=== PATIENT | female | born 1990 | race African-American/Black ===

== ENCOUNTER 2016-07-19 12:48 | Emergency (ER) | payer OTHER ==
--- NOTE | 2016-07-19 13:58 | ED NURSING NOTES ---
Clinical Report - Nurses [facility] [address] [place] [address] 07/19/2016 12:51 Patient: LESLEY GROSSMAN TRIAGE Triage time 1308. Chief Complaint: SORE THROAT. Alert. No acute distress. --13:12 Miguel Seth R.N. 13:08 07/19/16. BP: 109/68. HR: 95. RR: 14. O2 saturation: 99% on room air. Temp: 98.7 F. Pain level now: 01/21. --13:12 Miguel Seth R.N. Weight: 55.3 kg stated. Height/Length: 59 inches. BMI: 24.6. --13:09 Miguel Seth R.N. Medications None. --13:09 Miguel Seth R.N. Allergies No Known Drug Allergy. --13:10 Miguel Seth R.N. History Arrived by private vehicle. Historian: patient. Unaccompanied. This started yesterday. ( Patient presents to the ED with symptoms of sore throat, mild cough, and fever beginning yesterday. Patient states that her daughter was diagnosed with strep throat yesterday around 1am.). She has had severe left ear pain radiating to the throat. 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 SOCIAL HX: Never smoker. History of drug use: marijuana. Has had sore throat and cough. FALL RISK ASSESSMENT: Fall risk assessment completed. No fall risk identified. NUTRITIONAL RISK ASSESSMENT: The nutritional risk assessment revealed no deficiencies. FUNCTIONAL ASSESSMENT: Functional assessment: no impairments noted. LEARNING NEEDS ASSESSMENT: The learning needs assessment revealed no barriers. SKIN INTEGRITY ASSESSMENT: Skin integrity risk assessment completed. No skin integrity risk identified. --13:12 Miguel Seth R.N. PROBLEMS: Headache. Migraine Headache. Dental Pain. --13:10 Miguel Seth R.N. ADDITIONAL SURGERIES: . --13:10 Miguel Seth R.N. PHYSICAL ASSESSMENT Ambulatory to room. GENERAL / NEURO / PSYCH: Alert. Oriented X 4. Appears in no acute distress. HEENT: Pupils equal, round and reactive to light. Right-sided tonsillar exudate and swelling. Left-sided tonsillar exudate and swelling. Voice within normal limits. Mouth within normal limits upon inspection. No dental injury noted. Mucous membranes are pink. RESPIRATORY: Respirations not labored. CVS: Capillary refill less than 2 seconds. SKIN: Skin is warm and dry. Normal skin turgor. --13:13 Miguel Seth R.N. NURSING PROGRESS NOTES The plan of care for this patient has been created. Head of bed elevated. Call light placed in reach. Side rails up x 1. Bed placed in lowest position. Brakes of bed on. --13:13 Miguel Seth R.N. DISPOSITION / DISCHARGE Condition at departure: unchanged. The goals identified in the patient's plan of care were met. No learning barriers present. Discharge instructions provided and reviewed with the patient. Reviewed medication(s) side effects, precautions, dosing and course information. Prescription(s) given to the patient. Reviewed fever care instructions (pain control). Reviewed referral to a primary care physician. Reviewed need for increased fluid intake. Written instructions provided in Turkish. The patient was discharged home and unaccompanied at time of discharge. She left the Emergency Department ambulatory and via private vehicle. Patient driving. FALL RISK ASSESSMENT: Fall risk assessment completed. No fall risk identified. --14:08 Miguel Seth R.N. 14:07 07/19/16. BP: 107/72. HR: 75. RR: 16. O2 saturation: 100%. Temp: 98.3 F. Pain level now 01/21. --14:08 Miguel Seth R.N. Departure time: 1408 PM. --14:08 Miguel Seth R.N. Locked/Released at 07/19/2016 14:09 by Miguel Seth R.N.
--- NOTE | 2016-07-19 13:58 | ED CLINICAL REPORT ---
Clinical Report - Physicians/Mid Levels [facility] [address] [place] [address] 07/19/2016 12:51 Patient: LESLEY GROSSMNA Time Seen: 13:24; initial patient contact, initial documentation, patient care assumed. Arrived- By private vehicle. Historian- patient. HISTORY OF PRESENT ILLNESS Chief Complaint: SORE THROAT. This started yesterday. It was abrupt in onset and has been constant. Pain described as moderate. The patient has had a sore throat. No nasal discharge or congestion. She has had severe left ear pain radiating to the throat. (daughter txed here for strep). Similar symptoms previously: None. Recent medical care: Not recently seen/assessed. REVIEW OF SYSTEMS The patient has had fever and a cough. No difficulty breathing. All systems otherwise negative, except as recorded above. PAST HISTORY See nurses notes. PROBLEMS: Headache. Migraine Headache. Dental Pain. --13:10 Miguel Seth R.N. ADDITIONAL SURGERIES: . --13:10 Miguel Seth R.N. SOCIAL HISTORY Never smoker. History of occasional drug use: marijuana. No alcohol use. No recent travel. Is a local resident. FAMILY HISTORY Negative. ADDITIONAL NOTES The nursing notes have been reviewed with agreement regarding the chief complaint, HPI, ROS, PMH and patient medications and allergies. PHYSICAL EXAM Vital Signs: 07/19/2016 13:08 BP: 109/68. HR: 95. RR: 14. O2 saturation: 99%. Temp: 98.7 F. Pain level now: 7/10. Have been reviewed as normal and appear to be correct. Appearance: Alert. No acute distress. Head: Normal external inspection. Eyes: Pupils equal, round and reactive to light. Conjunctivae and eyelids normal. ENT: Ears normal. Nose normal. Pharynx abnormal. Right-sided tonsillar exudate, swelling and erythema. Left-sided tonsillar exudate, swelling and erythema (+1 hypertrophy). No right tonsillar abscess or left tonsillar abscess. No membrane suggesting mononucleosis. Lips normal. Gums normal. No trismus present. Uvula midline. Neck: Lymphadenopathy. Normal inspection. Moderate right anterior neck and moderate left anterior neck lymphadenopathy present. Trachea midline. Thyroid normal. Neck supple. Respiratory: No respiratory distress. Skin: Normal skin color. No rash. Normal skin turgor. Extremities: Extremities exhibit normal ROM. Extremities nontender. Neuro: Oriented X 3. No motor deficit. No sensory deficit. PROGRESS AND PROCEDURES Course of Care: 13:26 07/19/16. pt has lee ann for 4 er visits, here in 40 days, see report for full details. Patient counseled in person regarding the patient's stable condition and diagnosis. 13:58. Differential Diagnosis: I considered viral pharyngitis, bacterial pharyngitis, mycoplasmal pharyngitis, gonococcal pharyngitis, palatine tonsillitis, lingual tonsillitis, aphthous stomatitis, herpetic gingivostomatitis, allergic stomatitis, mononucleosis, Vincent's angina, peritonsillar cellulitis, peritonsillar abscess and sinusitis as a possible cause of sore throat in this patient. This is a partial list of diagnoses considered. Above considerations are based on history and physical exam. Differential diagnosis was discussed with patient. Disposition: Discharged home in good and unchanged condition (13:58). Condition: good and stable. CLINICAL IMPRESSION Acute streptococcal pharyngitis INSTRUCTIONS Warnings: GENERAL WARNINGS: Return or contact your physician immediately if your condition worsens or changes unexpectedly, if not improving as expected, or if other problems arise. Specifically return if problem worsens. Prescription Medications: Amoxicillin 500 mg tablets: Take 1 orally every 8 hours for 10 days. Dispense thirty (30). No refills. Motrin 600 mg tablets: take 1 tablet orally every 6 hours as needed for pain or fever. Dispense thirty (30). No refill. Follow-up: Follow up with your doctor in about three days even if well. Call for an appointment. Summary of care provided to patient. Understanding of the discharge instructions verbalized by patient. (Electronically signed by Eva Gonzalez A.R.N.P. 07/19/2016 16:09)
--- NOTE | 2016-07-19 13:58 | ED NURSING NOTES ---
Clinical Report - Nurses [facility] [address] [place] [address] 07/19/2016 12:51 Patient: LESLEY GROSSMAN TRIAGE Triage time 1308. Chief Complaint: SORE THROAT. Alert. No acute distress. --13:12 Miguel Seth R.N. 13:08 07/19/16. BP: 109/68. HR: 95. RR: 14. O2 saturation: 99% on room air. Temp: 98.7 F. Pain level now: 01/21. --13:12 Miguel Seth R.N. Weight: 55.3 kg stated. Height/Length: 59 inches. BMI: 24.6. --13:09 Miguel Seth R.N. Medications None. --13:09 Miguel Seth R.N. Allergies No Known Drug Allergy. --13:10 Miguel Seth R.N. History Arrived by private vehicle. Historian: patient. Unaccompanied. This started yesterday. ( Patient presents to the ED with symptoms of sore throat, mild cough, and fever beginning yesterday. Patient states that her daughter was diagnosed with strep throat yesterday around 1am.). She has had severe left ear pain radiating to the throat. 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 SOCIAL HX: Never smoker. History of drug use: marijuana. Has had sore throat and cough. FALL RISK ASSESSMENT: Fall risk assessment completed. No fall risk identified. NUTRITIONAL RISK ASSESSMENT: The nutritional risk assessment revealed no deficiencies. FUNCTIONAL ASSESSMENT: Functional assessment: no impairments noted. LEARNING NEEDS ASSESSMENT: The learning needs assessment revealed no barriers. SKIN INTEGRITY ASSESSMENT: Skin integrity risk assessment completed. No skin integrity risk identified. --13:12 Miguel Seth R.N. PROBLEMS: Headache. Migraine Headache. Dental Pain. --13:10 Miguel Seth R.N. ADDITIONAL SURGERIES: . --13:10 Miguel Seth R.N. PHYSICAL ASSESSMENT Ambulatory to room. GENERAL / NEURO / PSYCH: Alert. Oriented X 4. Appears in no acute distress. HEENT: Pupils equal, round and reactive to light. Right-sided tonsillar exudate and swelling. Left-sided tonsillar exudate and swelling. Voice within normal limits. Mouth within normal limits upon inspection. No dental injury noted. Mucous membranes are pink. RESPIRATORY: Respirations not labored. CVS: Capillary refill less than 2 seconds. SKIN: Skin is warm and dry. Normal skin turgor. --13:13 Miguel Seth R.N. NURSING PROGRESS NOTES The plan of care for this patient has been created. Head of bed elevated. Call light placed in reach. Side rails up x 1. Bed placed in lowest position. Brakes of bed on. --13:13 Miguel Seth R.N. DISPOSITION / DISCHARGE Condition at departure: unchanged. The goals identified in the patient's plan of care were met. No learning barriers present. Discharge instructions provided and reviewed with the patient. Reviewed medication(s) side effects, precautions, dosing and course information. Prescription(s) given to the patient. Reviewed fever care instructions (pain control). Reviewed referral to a primary care physician. Reviewed need for increased fluid intake. Written instructions provided in Chinese. The patient was discharged home and unaccompanied at time of discharge. She left the Emergency Department ambulatory and via private vehicle. Patient driving. FALL RISK ASSESSMENT: Fall risk assessment completed. No fall risk identified. --14:08 Miguel Seth R.N. 14:07 07/19/16. BP: 107/72. HR: 75. RR: 16. O2 saturation: 100%. Temp: 98.3 F. Pain level now 01/21. --14:08 Miguel Seth R.N. Departure time: 1408 PM. --14:08 Miguel Seth R.N. Locked/Released at 07/19/2016 14:09 by Miguel Seth R.N.
--- NOTE | 2016-07-19 16:10 | ED MAR SUMMARY ---
..... Medication Administration Record [facility] [address] [place] [address] Patient: LESLEY GROSSMAN Visit ID: [id number] 26y, F Weight: 55.3 kg Height/Length: 59 in BMI: 24.6 ALLERGIES: No Known Drug Allergy
--- NOTE | 2016-07-19 16:10 | ED MAR SUMMARY ---
..... Medication Administration Record [facility] [address] [place] [address] Patient: LESLEY GROSSMAN Visit ID: [id number] 26y, F Weight: 55.3 kg Height/Length: 59 in BMI: 24.6 ALLERGIES: No Known Drug Allergy
--- NOTE | 2016-07-19 16:10 | ED DISCHARGE INSTRUCTIONS ---
Patient: LESLEY GROSSMAN General Instructions [facility] VisitID: [id number] [place] [address] 26y, F Registration Date/Time: 07/19/2016 Acute streptococcal pharyngitis INSTRUCTIONS Warnings: GENERAL WARNINGS: Return or contact your physician immediately if your condition worsens or changes unexpectedly, if not improving as expected, or if other problems arise. Specifically return if problem worsens. Prescription Medications: Amoxicillin 500 mg tablets: Take 1 orally every 8 hours for 10 days. Dispense thirty (30). No refills. Motrin 600 mg tablets: take 1 tablet orally every 6 hours as needed for pain or fever. Dispense thirty (30). No refill. Follow-up: Follow up with your doctor in about three days even if well. Call for an appointment. Summary of care provided to patient. Understanding of the discharge instructions verbalized by patient. ADDITIONAL INFORMATION Pharyngitis: Strep [Presumed] Your illness has the signs of a strep throat infection. Strep throat is a contagious illness. It is spread by coughing, kissing or by touching others after touching your mouth or nose. Symptoms include throat pain worse with swallowing, aching all over, headache and fever. You will be treated with an antibiotic, which should make you start to feel better within 1-2 days. Home Care: Rest at home and drink plenty of fluids to avoid dehydration. No school or work for the first two days on antibiotics. You will not be contagious after this time, and if you are feeling better, you can return to school or work. Take your antibiotics for a full 10 days, even if you feel better after the first few days of treatment. This is very important to prevent complications from the strep infection (such as heart or kidney disease). Children: Use acetaminophen (Tylenol) for fever, fussiness or discomfort. In infants over six months of age, you may use ibuprofen (Children's Motrin) instead of Tylenol. [NOTE: If your child has chronic liver or kidney disease or ever had a stomach ulcer or GI bleeding, talk with your doctor before using these medicines.] (Aspirin should never be used in anyone under 18 years of age who is ill with a fever. It may cause severe liver damage.) Adults: You may use acetaminophen (Tylenol) or ibuprofen (Motrin, Advil) to control pain or fever, unless another medicine was prescribed for this. [NOTE: If you have chronic liver or kidney disease or ever had a stomach ulcer or GI bleeding, talk with your doctor before using these medicines.] Throat lozenges or sprays (Chloraseptic and others) will reduce pain. Gargling with warm salt water will also reduce throat pain. Dissolve 1/2 teaspoon of salt in 1 glass of warm water. This is especially useful just before meals. Follow Up with your doctor or as directed by our staff if you are not improving over the next week. Get Prompt Medical Attention if any of the following occur: Fever over 100.5F (38.0C) oral, or over 101.5F (38.6C) rectal for more than three days New or worsening ear pain, sinus pain or headache Painful lumps in the back of your neck Unable to swallow liquids or open your mouth wide due to throat pain Trouble breathing or noisy breathing Muffled voice New rash Amoxicillin Trihydrate Oral tablet What is this medicine? AMOXICILLIN (a mox i BERT in) is a penicillin antibiotic. It is used to treat certain kinds of bacterial infections. It will not work for colds, flu, or other viral infections. How should I use this medicine? Take this medicine by mouth with a glass of water. Follow the directions on your prescription label. You may take this medicine with food or on an empty stomach. Take your medicine at regular intervals. Do not take your medicine more often than directed. Take all of your medicine as directed even if you think your are better. Do not skip doses or stop your medicine early. Talk to your flanging roll operator regarding the use of this medicine in children. While this drug may be prescribed for selected conditions, precautions do apply. What side effects may I notice from receiving this medicine? Side effects that you should report to your doctor or health pharmacist critical care as soon as possible: allergic reactions like skin rash, itching or hives, swelling of the face, lips, or tongue breathing problems dark urine redness, blistering, peeling or loosening of the skin, including inside the mouth seizures severe or watery diarrhea trouble passing urine or change in the amount of urine unusual bleeding or bruising unusually weak or tired yellowing of the eyes or skin Side effects that usually do not require medical attention (report to your doctor or health pharmacist critical care if they continue or are bothersome): dizziness headache stomach upset trouble sleeping What may interact with this medicine? amiloride control pills chloramphenicol macrolides probenecid sulfonamides tetracyclines What if I miss a dose? If you miss a dose, take it as soon as you can. If it is almost time for your next dose, take only that dose. Do not take double or extra doses. Where should I keep my medicine? Keep out of the reach of children. Store between 68 and 77 degrees F (20 and 25 degrees C). Keep bottle closed tightly. Throw away any unused medicine after the expiration date. What should I tell my health care provider before I take this medicine? They need to know if you have any of these conditions: asthma kidney disease an unusual or allergic reaction to amoxicillin, other penicillins, cephalosporin antibiotics, other medicines, foods, dyes, or preservatives or trying to get breast-feeding What should I watch for while using this medicine? Tell your doctor or health pharmacist critical care if your symptoms do not improve in 2 or 3 days. Take all of the doses of your medicine as directed. Do not skip doses or stop your medicine early. If you are diabetic, you may get a false positive result for sugar in your urine with certain brands of urine tests. Check with your doctor. Do not treat diarrhea with [id number] products. Contact your doctor if you have diarrhea that lasts more than 2 days or if the diarrhea is severe and watery. Ibuprofen Oral tablet What is this medicine? IBUPROFEN (eye BYOO proe fen) is a non-steroidal anti-inflammatory drug (NSAID). It is used for dental pain, fever, headaches or migraines, osteoarthritis, rheumatoid arthritis, or painful monthly periods. It can also relieve minor aches and pains caused by a cold, flu, or sore throat. How should I use this medicine? Take this medicine by mouth with a glass of water. Follow the directions on the prescription label. Take this medicine with food if your stomach gets upset. Try to not lie down for at least 10 minutes after you take the medicine. Take your medicine at regular intervals. Do not take your medicine more often than directed. A special MedGuide will be given to you by the pharmacist with each prescription and refill. Be sure to read this information carefully each time. Talk to your flanging roll operator regarding the use of this medicine in children. Special care may be needed. What side effects may I notice from receiving this medicine? Side effects that you should report to your doctor or health pharmacist critical care as soon as possible: allergic reactions like skin rash, itching or hives, swelling of the face, lips, or tongue black or bloody stools, blood in the urine or in vomit breathing problems changes in vision chest pain general ill feeling or flu-like symptoms nausea or vomiting redness, blistering, peeling or loosening of the skin, including inside the mouth slurred speech or weakness on one side of the body stomach pain unexplained weight gain or swelling unusually weak or tired yellowing of eyes or skin Side effects that usually do not require medical attention (report to your doctor or health pharmacist critical care if they continue or are bothersome): constipation or diarrhea dizziness gas or heartburn stomach upset What may interact with this medicine? Do not take this medicine with any of the following medications: cidofovir ketorolac methotrexate pemetrexed This medicine may also interact with the following medications: alcohol aspirin diuretics lithium other drugs for inflammation like prednisone warfarin What if I miss a dose? If you miss a dose, take it as soon as you can. If it is almost time for your next dose, take only that dose. Do not take double or extra doses. Where should I keep my medicine? Keep out of the reach of children. Store at room temperature between 15 and 30 degrees C (59 and 86 degrees F). Keep container tightly closed. Throw away any unused medicine after the expiration date. What should I tell my health care provider before I take this medicine? They need to know if you have any of these conditions: asthma cigarette smoker drink more than 3 alcohol containing drinks a day heart disease or circulation problems such as heart failure or leg edema (fluid retention) high blood pressure kidney disease liver disease stomach bleeding or ulcers an unusual or allergic reaction to ibuprofen, aspirin, other NSAIDS, other medicines, foods, dyes, or preservatives or trying to get breast-feeding What should I watch for while using this medicine? Tell your doctor or healthcare professional if your symptoms do not start to get better or if they get worse. This medicine does not prevent heart attack or stroke. In fact, this medicine may increase the chance of a heart attack or stroke. The chance may increase with longer use of this medicine and in people who have heart disease. If you take aspirin to prevent heart attack or stroke, talk with your doctor or health pharmacist critical care. Do not take other medicines that contain aspirin, ibuprofen, or naproxen with this medicine. Side effects such as stomach upset, nausea, or ulcers may be more likely to occur. Many medicines available without a prescription should not be taken with this medicine. This medicine can cause ulcers and bleeding in the stomach and intestines at any time during treatment. Ulcers and bleeding can happen without warning symptoms and can cause . To reduce your risk, do not smoke cigarettes or drink alcohol while you are taking this medicine. You may get drowsy or dizzy. Do not drive, use machinery, or do anything that needs mental alertness until you know how this medicine affects you. Do not stand or sit up quickly, especially if you are an older patient. This reduces the risk of dizzy or fainting spells. This medicine can cause you to bleed more easily. Try to avoid damage to your teeth and gums when you brush or floss your teeth. You have been given the following additional information: Pharyngitis, Strep (Presumed) Amoxicillin Trihydrate Oral tablet Ibuprofen Oral tablet (Electronically signed by Eva Gonzalez A.R.N.P. 07/19/2016 16:09)
--- NOTE | 2016-07-19 16:10 | ED MED RECONCILIATION SUMMARY ---
Patient: LESLEY GROSSMAN Medication Reconciliation Report [facility] VisitID: [id number] [address] [place] [address] 26y, F Registration Date/Time: 07/19/2016 Weight: 55.3 kg Height/Length: 59 in. BMI: 24.6 ALLERGIES: No Known Drug Allergy The patient's Home Medications are listed below: NONE. The source(s) of the original Home Medication information: Not obtained. The following Medications were given to the patient in the Emergency Department: None. The following Medications were prescribed to the patient: Amoxicillin 500 mg tablets: Take 1 orally every 8 hours for 10 days. Dispense thirty (30). No refills. -- Eva Gonzalez, Jacinto.R.N.P. Motrin 600 mg tablets: take 1 tablet orally every 6 hours as needed for pain or fever. Dispense thirty (30). No refill. -- Eva Gonzalez A.R.N.P.
--- NOTE | 2016-07-19 16:10 | ED MED RECONCILIATION SUMMARY ---
Patient: LESLEY GROSSMAN Medication Reconciliation Report [facility] VisitID: [id number] [address] [place] [address] 26y, F Registration Date/Time: 07/19/2016 Weight: 55.3 kg Height/Length: 59 in. BMI: 24.6 ALLERGIES: No Known Drug Allergy The patient's Home Medications are listed below: NONE. The source(s) of the original Home Medication information: Not obtained. The following Medications were given to the patient in the Emergency Department: None. The following Medications were prescribed to the patient: Amoxicillin 500 mg tablets: Take 1 orally every 8 hours for 10 days. Dispense thirty (30). No refills. -- Eva Gonzalez, Jacinto.R.N.P. Motrin 600 mg tablets: take 1 tablet orally every 6 hours as needed for pain or fever. Dispense thirty (30). No refill. -- vEa Gonzalez A.R.N.P.
== END 2016-07-19 14:07 | disposition home or self-care (01) ==
LOC: ED SRH 12:48
DX: J02.0 Streptococcal pharyngitis (principal)

== ENCOUNTER 2016-12-17 04:46 | Emergency (ER) | payer OTHER ==
--- NOTE | 2016-12-17 06:12 | ED ORDER SUMMARY ---
..... Patient: LESLEY GROSSMAN OrderSheet [facility] VisitID: [id number] [place] [address] 26y, F Registration Date/Time: 12/17/2016 ORDER SHEET Weight: 57.1 kg (stated) Allergies: No Known Drug Allergy GENERAL ORDERS: MEDICATION ORDERS: Prednisone PO 40 mg (NOW) (04:59 12/17/2016 Catalina Benjamin) (Ack 5:01 HSoule) (5:12 HSoule) Benadryl PO 50 mg (NOW) (05:00 12/17/2016 Catalina Benjamin) (Ack 5:01 HSoule) (5:12 HSoule) Famotidine PO 20 mg (NOW) (05:00 12/17/2016 Catalina Benjamin) (Ack 5:01 HSoule) (5:12 HSoule) IV FLUIDS: ORDER SHEET NOTES: [Electronically signed by Shayla Law (07:19 12/17/2016)] [Electronically signed by Thien Fuentes Dr. (20:46 12/17/2016)] [Electronically locked/signed by Shayla Law (07:19 12/17/2016)]
--- NOTE | 2016-12-17 06:12 | ED NURSING NOTES ---
Clinical Report - Nurses [facility] [address] [place] [address] 12/17/2016 4:47 [id number] TRI[facility] Triage time 04:51 Dec 17 2016. Acuity: LEVEL 4. Chief Complaint: SKIN RASH. SEPSIS SCREEN: Sepsis Screen: negative. Negative (no infection suspected/documented). KATIE COMA SCORE: [place] Coma Scale: 15- eyes open spontaneously (4); best verbal response- oriented x 4 (5); best motor response- obeys commands (6). --04:57 Shayla Law 04:51 12/17/16. BP: 101/56. HR: 82. RR: 18. O2 saturation: 98% on room air. Temp: 99 F (oral). Pain level now: 01/21. --04:57 Shayla Law. Weight: 57.1 kg stated. Height/Length: 59 inches Per Patient. BMI: 25.4. --04:56 Shayla Law. Medications Augmentin Oral. --04:54 Shayla Law Bentyl Oral. --04:54 Shayla Law Reglan Oral. --04:54 Shayla Law. Medication/allergy information source: the patient. --04:57 Shayla Law. Allergies No Known Drug Allergy. --04:54 Shayla Law. History Arrived by private vehicle. Historian: patient. Unaccompanied. Reported as generalized in location. This started today. It is described as itchy, burning and painful. She has recently taken an antibiotic (7). ( Patient reports that last night she began having some itching on her skin. She has generalized hives. She denies use of any new soaps or products. She reports use of bentyl and augmentin for 7 days for colitis. She denies any other symptoms.). 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 PAST MEDICAL HX: Immunizations: up-to-date. Last normal menstrual period- 4 years. Uses depo injections. SOCIAL HX: Never smoker. History of drug use: marijuana. No alcohol use. No infectious disease exposure. ABUSE ASSESSMENT: No report of abuse. FALL RISK ASSESSMENT: Fall risk assessment completed. No fall risk identified. NUTRITIONAL RISK ASSESSMENT: The nutritional risk assessment revealed no deficiencies. FUNCTIONAL ASSESSMENT: Functional assessment: no impairments noted. LEARNING NEEDS ASSESSMENT: The learning needs assessment revealed no barriers. SKIN INTEGRITY ASSESSMENT: Skin integrity risk assessment completed. No skin integrity risk identified. --04:57 Shayla Law. PROBLEMS: Pharyngitis. Headache. Migraine Headache. Dental Pain. --04:54 Shayla Law. ADDITIONAL SURGERIES: . --04:54 Shayla Law. Interventions ID band on patient. To treatment room. --04:57 Shayla Law. PHYSICAL ASSESSMENT 04:57 12/17/16. Ambulatory to room. GENERAL / NEURO / PSYCH: Alert. The patient does not appear to be in acute distress. Oriented X 4. HEENT: Mucous membranes are pink. RESPIRATORY: Respirations not labored. CVS: Pulses within normal limits. SKIN: Skin is warm and dry. Skin rash present. Urticaria- associated with itching and swelling. --04:57 Shayla Law. NURSING PROGRESS NOTES Patient gowned. Reassurance given to the patient. Two patient identifiers checked. Call light placed in reach. Side rails up x 1. Bed placed in lowest position. Brakes of bed on. Patient ready for evaluation- chart flagged and ED physician notified. --04:57 Shayla Law 05:12 12/17/2016 Prednisone PO Tablets 40 mg given. Allergies verified and confirmed 5 rights. --05:12 Shayla Law 05:12 12/17/2016 Benadryl (DiphenhydrAMINE HCl) PO Capsules 50 mg given. Allergies verified, confirmed 5 rights and sedative warning given to the patient. --05:12 Shayla Law 05:12 12/17/2016 Famotidine PO Tablets 20 mg given. Allergies verified and confirmed 5 rights. --05:12 Shayla Law Reassessment after medication administered. She is resting quietly. Overall patient status is improved- she states feels better. --05:51 Shayla Law 06:00 12/17/16. BP: 102/59. HR: 65. RR: 18. O2 saturation: 98% on room air. --06:01 Shayla Law. DISPOSITION / DISCHARGE 06:25 12/17/16. Condition at departure: stable. The goals identified in the patient's plan of care were met. No learning barriers present. Discharge instructions provided and reviewed with the patient. Reviewed medication(s) side effects, precautions, dosing and course information. Prescription(s) given to the patient. Patient verbalized understanding. Written instructions provided in Armenian. ( Increase fluids and rest until you feel better. If your rash persists despite medication treatment seek medical treatment. Be cautious taking antibiotics in the future for allergic type reactions. Patient verbalized understanding and had no additional questions at this time.). The patient was discharged by the physician. She was discharged home and accompanied by auditing control clerk. She left the Emergency Department ambulatory and via private vehicle. [employer] Sales Manager driving. FALL RISK ASSESSMENT: Fall risk assessment completed. No fall risk identified. --07:19 Shayla Law 06:25 12/17/16. BP: 104/60. HR: 70. RR: 20. O2 saturation: 98% on room air. Temp: 99 F (oral). Pain level now: 0/10. --07:19 Shayla Law. Locked/Released at 12/17/2016 7:19 by Shayla Law,
--- NOTE | 2016-12-17 06:12 | ED CLINICAL REPORT ---
Clinical Report - Physicians/Mid Levels [facility] [address] [place] [address] 12/17/2016 4:47 Patient: LESLEY GROSSMAN Time Seen: 04:49; initial patient contact. Arrived- By private vehicle. Historian- patient. HISTORY OF PRESENT ILLNESS Chief Complaint: SKIN RASH. This started today and is still present and worsening. It was gradual in onset. It is described as itchy and burning. It has been generalized in location. A possible cause has been identified (On Bentyl, Augmentin, and Reglan for Colitis). She has recently taken medication. Similar symptoms previously: None. Recent medical care: Not recently seen/assessed. REVIEW OF SYSTEMS No fever, chills, sore throat or difficulty breathing. All systems otherwise negative, except as recorded above. PAST HISTORY Pharyngitis. Headache. Migraine Headache. Dental Pain. SURGERIES: . -. SOCIAL HISTORY Never smoker. History of drug use: marijuana. No alcohol use. ADDITIONAL NOTES The nursing notes have been reviewed. PHYSICAL EXAM Vital Signs: 12/17/2016 04:51 BP: 101/56. HR: 82. RR: 18. O2 saturation: 98%. Temp: 99 F. Pain level now: 7/10. Have been reviewed. Hypotensive. Heart rate normal. Respiratory rate normal. Temperature normal. Oxygen saturation normal. Appearance: Alert. Oriented X3. No acute distress. Eyes: Conjunctivae and eyelids normal. CVS: Normal heart rate and rhythm. Heart sounds normal. Respiratory: No respiratory distress. Breath sounds normal. Skin: The rash is generalized. The rash is urticarial and erythematous. There is warmth. No tenderness. Neuro: Oriented X 3. PROGRESS AND PROCEDURES Course of Care: Benadryl 50 mg PO given. Sedative drug warning given to the patient. Prednisone 40 mg PO given. Physical exam findings are improved. Symptoms much better. Disposition: Discharged home in good and improved condition. Condition: good. CLINICAL IMPRESSION Generalized allergic reaction with skin rash and hives secondary to PO penicillins. INSTRUCTIONS Do not work today. Your Current Medications: STOP TAKING THE FOLLOWING MEDICATIONS: Augmentin Oral. Bentyl Oral. Reglan Oral. Prescription Medications: Zantac 150 mg: take 1 orally every 12 hours. Dispense sixty (60). No refills. Substitution is permissible. Prednisone 20 mg: take 2 orally every day. Dispense sufficient quantity. No refills. Follow-up: Follow up with your doctor in about two days. Call for an appointment. Screening today revealed the patient's blood pressure to be in the normal range. (Electronically signed by Thien Fuentes Dr. 12/17/2016 20:46)
--- NOTE | 2016-12-17 06:12 | ED CLINICAL REPORT ---
Clinical Report - Physicians/Mid Levels [facility] [address] [place] [address] 12/17/2016 4:47 Patient: LESLEY GROSSMAN Time Seen: 04:49; initial patient contact. Arrived- By private vehicle. Historian- patient. HISTORY OF PRESENT ILLNESS Chief Complaint: SKIN RASH. This started today and is still present and worsening. It was gradual in onset. It is described as itchy and burning. It has been generalized in location. A possible cause has been identified (On Bentyl, Augmentin, and Reglan for Colitis). She has recently taken medication. Similar symptoms previously: None. Recent medical care: Not recently seen/assessed. REVIEW OF SYSTEMS No fever, chills, sore throat or difficulty breathing. All systems otherwise negative, except as recorded above. PAST HISTORY Pharyngitis. Headache. Migraine Headache. Dental Pain. SURGERIES: . -. SOCIAL HISTORY Never smoker. History of drug use: marijuana. No alcohol use. ADDITIONAL NOTES The nursing notes have been reviewed. PHYSICAL EXAM Vital Signs: 12/17/2016 04:51 BP: 101/56. HR: 82. RR: 18. O2 saturation: 98%. Temp: 99 F. Pain level now: 7/10. Have been reviewed. Hypotensive. Heart rate normal. Respiratory rate normal. Temperature normal. Oxygen saturation normal. Appearance: Alert. Oriented X3. No acute distress. Eyes: Conjunctivae and eyelids normal. CVS: Normal heart rate and rhythm. Heart sounds normal. Respiratory: No respiratory distress. Breath sounds normal. Skin: The rash is generalized. The rash is urticarial and erythematous. There is warmth. No tenderness. Neuro: Oriented X 3. PROGRESS AND PROCEDURES Course of Care: Benadryl 50 mg PO given. Sedative drug warning given to the patient. Prednisone 40 mg PO given. Physical exam findings are improved. Symptoms much better. Disposition: Discharged home in good and improved condition. Condition: good. CLINICAL IMPRESSION Generalized allergic reaction with skin rash and hives secondary to PO penicillins. INSTRUCTIONS Do not work today. Your Current Medications: STOP TAKING THE FOLLOWING MEDICATIONS: Augmentin Oral. Bentyl Oral. Reglan Oral. Prescription Medications: Zantac 150 mg: take 1 orally every 12 hours. Dispense sixty (60). No refills. Substitution is permissible. Prednisone 20 mg: take 2 orally every day. Dispense sufficient quantity. No refills. Follow-up: Follow up with your doctor in about two days. Call for an appointment. Screening today revealed the patient's blood pressure to be in the normal range. (Electronically signed by Thien Fuentes Dr. 12/17/2016 20:46)
--- NOTE | 2016-12-17 06:12 | ED NURSING NOTES ---
Clinical Report - Nurses [facility] [address] [place] [address] 12/17/2016 4:47 [id number] TRI[facility] Triage time 04:51 Dec 17 2016. Acuity: LEVEL 4. Chief Complaint: SKIN RASH. SEPSIS SCREEN: Sepsis Screen: negative. Negative (no infection suspected/documented). KATIE COMA SCORE: [place] Coma Scale: 15- eyes open spontaneously (4); best verbal response- oriented x 4 (5); best motor response- obeys commands (6). --04:57 Shayla Law 04:51 12/17/16. BP: 101/56. HR: 82. RR: 18. O2 saturation: 98% on room air. Temp: 99 F (oral). Pain level now: 01/21. --04:57 Shayla Law. Weight: 57.1 kg stated. Height/Length: 59 inches Per Patient. BMI: 25.4. --04:56 Shayla Law. Medications Augmentin Oral. --04:54 Shayla Law Bentyl Oral. --04:54 Shayla Law Reglan Oral. --04:54 Shayla Law. Medication/allergy information source: the patient. --04:57 Shayla Law. Allergies No Known Drug Allergy. --04:54 Shayla Law. History Arrived by private vehicle. Historian: patient. Unaccompanied. Reported as generalized in location. This started today. It is described as itchy, burning and painful. She has recently taken an antibiotic (7). ( Patient reports that last night she began having some itching on her skin. She has generalized hives. She denies use of any new soaps or products. She reports use of bentyl and augmentin for 7 days for colitis. She denies any other symptoms.). 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 PAST MEDICAL HX: Immunizations: up-to-date. Last normal menstrual period- 4 years. Uses depo injections. SOCIAL HX: Never smoker. History of drug use: marijuana. No alcohol use. No infectious disease exposure. ABUSE ASSESSMENT: No report of abuse. FALL RISK ASSESSMENT: Fall risk assessment completed. No fall risk identified. NUTRITIONAL RISK ASSESSMENT: The nutritional risk assessment revealed no deficiencies. FUNCTIONAL ASSESSMENT: Functional assessment: no impairments noted. LEARNING NEEDS ASSESSMENT: The learning needs assessment revealed no barriers. SKIN INTEGRITY ASSESSMENT: Skin integrity risk assessment completed. No skin integrity risk identified. --04:57 Shayla Law. PROBLEMS: Pharyngitis. Headache. Migraine Headache. Dental Pain. --04:54 Shayla Law. ADDITIONAL SURGERIES: . --04:54 Shayla Law. Interventions ID band on patient. To treatment room. --04:57 Shayla Law. PHYSICAL ASSESSMENT 04:57 12/17/16. Ambulatory to room. GENERAL / NEURO / PSYCH: Alert. The patient does not appear to be in acute distress. Oriented X 4. HEENT: Mucous membranes are pink. RESPIRATORY: Respirations not labored. CVS: Pulses within normal limits. SKIN: Skin is warm and dry. Skin rash present. Urticaria- associated with itching and swelling. --04:57 Shayla Law. NURSING PROGRESS NOTES Patient gowned. Reassurance given to the patient. Two patient identifiers checked. Call light placed in reach. Side rails up x 1. Bed placed in lowest position. Brakes of bed on. Patient ready for evaluation- chart flagged and ED physician notified. --04:57 Shayla Law 05:12 12/17/2016 Prednisone PO Tablets 40 mg given. Allergies verified and confirmed 5 rights. --05:12 Shayla Law 05:12 12/17/2016 Benadryl (DiphenhydrAMINE HCl) PO Capsules 50 mg given. Allergies verified, confirmed 5 rights and sedative warning given to the patient. --05:12 Shayla Law 05:12 12/17/2016 Famotidine PO Tablets 20 mg given. Allergies verified and confirmed 5 rights. --05:12 Shayla Law Reassessment after medication administered. She is resting quietly. Overall patient status is improved- she states feels better. --05:51 Shayla Law 06:00 12/17/16. BP: 102/59. HR: 65. RR: 18. O2 saturation: 98% on room air. --06:01 Shayla Law. DISPOSITION / DISCHARGE 06:25 12/17/16. Condition at departure: stable. The goals identified in the patient's plan of care were met. No learning barriers present. Discharge instructions provided and reviewed with the patient. Reviewed medication(s) side effects, precautions, dosing and course information. Prescription(s) given to the patient. Patient verbalized understanding. Written instructions provided in [place]. ( Increase fluids and rest until you feel better. If your rash persists despite medication treatment seek medical treatment. Be cautious taking antibiotics in the future for allergic type reactions. Patient verbalized understanding and had no additional questions at this time.). The patient was discharged by the physician. She was discharged home and accompanied by cylinder loader. She left the Emergency Department ambulatory and via private vehicle. Manufacturing Project Engineer driving. FALL RISK ASSESSMENT: Fall risk assessment completed. No fall risk identified. --07:19 Shayla Law 06:25 12/17/16. BP: 104/60. HR: 70. RR: 20. O2 saturation: 98% on room air. Temp: 99 F (oral). Pain level now: 0/10. --07:19 Shayla Law. Locked/Released at 12/17/2016 7:19 by Shayla Law,
--- NOTE | 2016-12-17 06:12 | ED ORDER SUMMARY ---
..... Patient: LESLEY GROSSMAN OrderSheet [facility] VisitID: [id number] [place] [address] 26y, F Registration Date/Time: 12/17/2016 ORDER SHEET Weight: 57.1 kg (stated) Allergies: No Known Drug Allergy GENERAL ORDERS: MEDICATION ORDERS: Prednisone PO 40 mg (NOW) (04:59 12/17/2016 Catalina Benjamin) (Ack 5:01 HSoule) (5:12 HSoule) Benadryl PO 50 mg (NOW) (05:00 12/17/2016 Catalina Benjamin) (Ack 5:01 HSoule) (5:12 HSoule) Famotidine PO 20 mg (NOW) (05:00 12/17/2016 Catalina Benjamin) (Ack 5:01 HSoule) (5:12 HSoule) IV FLUIDS: ORDER SHEET NOTES: [Electronically signed by Shayla Law (07:19 12/17/2016)] [Electronically signed by Thien Fuentes Dr. (20:46 12/17/2016)] [Electronically locked/signed by Shayla Law (07:19 12/17/2016)]
--- NOTE | 2016-12-17 20:46 | ED MAR SUMMARY ---
..... Medication Administration Record [facility] [address] [place] [address] Patient: LESLEY GROSSMAN Visit ID: [id number] 26y, F Weight: 57.1 kg Height/Length: 59 in BMI: 25.4 ALLERGIES: No Known Drug Allergy Given 05:12/17/2016 Shayla Law, Medication Administered: PREDNISONE [PO], Dose: 40 mg Tablets PO. Medication Ordered: Prednisone PO 40 mg (NOW). Given 05:12/17/2016 Shayla Law, Medication Administered: BENADRYL [PO] (DIPHENHYDRAMINE HCL), Dose: 50 mg Capsules PO. Medication Ordered: Benadryl PO 50 mg (NOW). Given 05:12/17/2016 Shayla Law, Medication Administered: FAMOTIDINE [PO], Dose: 20 mg Tablets PO. Medication Ordered: Famotidine PO 20 mg (NOW).
--- NOTE | 2016-12-17 20:46 | ED DISCHARGE INSTRUCTIONS ---
Patient: LESLEY GROSSMAN General Instructions [facility] VisitID: [id number] [place] [address] 26y, F Registration Date/Time: 12/17/2016 Generalized allergic reaction with skin rash and hives secondary to PO penicillins. INSTRUCTIONS Do not work today. Your Current Medications: STOP TAKING THE FOLLOWING MEDICATIONS: Augmentin Oral. Bentyl Oral. Reglan Oral. Prescription Medications: Zantac 150 mg: take 1 orally every 12 hours. Dispense sixty (60). No refills. Substitution is permissible. Prednisone 20 mg: take 2 orally every day. Dispense sufficient quantity. No refills. Follow-up: Follow up with your doctor in about two days. Call for an appointment. Screening today revealed the patient's blood pressure to be in the normal range. ADDITIONAL INFORMATION Allergic Reaction,Generalized [Other] You are having an allergic reaction. This may cause an itchy rash, dizziness, fainting, trouble breathing or swallowing, and swelling of the face or other parts of the body. This can be caused by exposure to something in your surroundings that you have become sensitive to. This could be due to medicine or food. This could also be due to something you put on your skin or in your hair or something in the air. Often it is not possible to find out exactly what has caused your reaction. The goal of today's treatment is to relieve symptoms. The rash will usually fade over several days, but can sometimes last up to two weeks. Home Care: 1) If you know what you are allergic to, avoid it because future reactions could be worse than this one. 2) Avoid tight clothing and anything that heats up your skin (hot showers/baths, direct sunlight) since heat will make itching worse. 3) An ice pack will relieve local areas of intense itching and redness. Lanacaine cream or Solarcaine spray (or other product containing "benzocaine", available without a prescription) will reduce the itching. 4) Oral Benadryl (diphenhydramine) is an antihistamine available at drug and grocery stores. Unless a prescription antihistamine was given, Benadryl may be used to reduce itching if large areas of the skin are involved. Use lower doses during the daytime and higher doses at bedtime since the drug may make you sleepy. [NOTE: Do not use Benadryl if you have glaucoma or if you are a man with trouble urinating due to an enlarged prostate.] Claritin (loratidine) is an antihistamine that causes less drowsiness and is a good alternative for daytime use. Follow Up Follow Up with your doctor or this facility in two days if your symptoms do not continue to improve. If you had a severe reaction today, or if you have had several mild-moderate allergic reactions in the past, ask your doctor about allergy testing to find out what you are allergic to. If your reaction included dizziness, fainting or trouble breathing or swallowing, ask your doctor about carrying an Allergy Kit (injectable epinephrine) for home use. Get Prompt Medical Attention if any of the following occur: -- Trouble breathing or swallowing -- New or worse swelling in the face, eyelids, lips, mouth, tongue or throat -- Dizziness, weakness or fainting Drug Reaction: Allergic You are having an allergic reaction to a drug you have taken. This causes an itchy rash and sometimes swelling of various parts of the body. It may also cause trouble swallowing or breathing. The rash may take a few hours or up to two weeks to go away. In the future, remember to tell your doctor about your allergy to this drug so that drugs of this type won't be used again. Home Care: 1) Throw the drug away and do not take it again. The next reaction may be much worse. 2) Avoid tight clothing and anything that heats up your skin (hot showers/baths, direct sunlight) since heat will make itching worse. 3) An ice pack (ice cubes in a plastic bag, wrapped in a towel) will relieve local areas of intense itching and redness. Lanacaine cream or Solarcaine spray (or other product containing "benzocaine") will reduce the itching. 4) Avoid scratching which may worsen the reaction, damage your skin and lead to an infection. 5) Oral Benadryl (diphenhydramine) is an antihistamine available at drug and grocery stores. Unless a prescription antihistamine was given, Benadryl may be used to reduce itching if large areas of the skin are involved. Use lower doses during the daytime and higher doses at bedtime since the drug may make you sleepy. [NOTE: Do not use Benadryl if you have glaucoma or if you are a man with trouble urinating due to an enlarged prostate.] Claritin (loratadine) is an antihistamine that causes less drowsiness and is a good alternative for daytime use. Follow Up with your doctor or this facility in the next two days if your symptoms do not continue to improve. Get Prompt Medical Attention if any of the following occur: -- Wheezing, shortness of breath or difficulty swallowing -- Increased swelling in the face, eyelids, mouth, lips, tongue or throat -- Dizziness, weakness or fainting Ranitidine Hydrochloride Oral tablet What is this medicine? RANITIDINE (ra RAVEN arvizu) is a type of antihistamine that blocks the release of stomach acid. It is used to treat stomach or intestinal ulcers. It can relieve ulcer pain and discomfort, and the heartburn from acid reflux. How should I use this medicine? Take this medicine by mouth with a glass of water. Follow the directions on the prescription label. If you only take this medicine once a day, take it at bedtime. Take your medicine at regular intervals. Do not take your medicine more often than directed. Do not stop taking except on your doctor's advice. Talk to your skin care instructor regarding the use of this medicine in children. Special care may be needed. What side effects may I notice from receiving this medicine? Side effects that you should report to your doctor or health acute care nurse as soon as possible: agitation, nervousness, depression, hallucinations allergic reactions like skin rash, itching or hives, swelling of the face, lips, or tongue breast enlargement in both males and females breathing problems redness, blistering, peeling or loosening of the skin, including inside the mouth unusual bleeding or bruising unusually weak or tired vomiting yellowing of the skin or eyes Side effects that usually do not require medical attention (report to your doctor or health acute care nurse if they continue or are bothersome): constipation or diarrhea dizziness headache nausea What may interact with this medicine? atazanavir delavirdine gefitinib glipizide ketoconazole midazolam procainamide propantheline triazolam warfarin What if I miss a dose? If you miss a dose, take it as soon as you can. If it is almost time for your next dose, take only that dose. Do not take double or extra doses. Where should I keep my medicine? Keep out of the reach of children. Store at room temperature between 15 and 30 degrees C (59 and 86 degrees F). Protect from light and moisture. Keep container tightly closed. Throw away any unused medicine after the expiration date. What should I tell my health care provider before I take this medicine? They need to know if you have any of these conditions: kidney disease liver disease porphyria an unusual or allergic reaction to ranitidine, other medicines, foods, dyes, or preservatives or trying to get breast-feeding What should I watch for while using this medicine? Tell your doctor or health acute care nurse if your condition does not start to get better or gets worse. You may need to take this medicine for several days as prescribed before your symptoms get better. Finish the full course of tablets prescribed, even if you feel better. Do not smoke cigarettes or drink alcohol. These increase irritation in your stomach and can lengthen the time it will take for ulcers to heal. Cigarettes and alcohol can also make acid reflux or heartburn worse. If you get black, tarry stools or vomit up what looks like coffee grounds, call your doctor or health acute care nurse at once. You may have a bleeding ulcer. Prednisone Oral tablet What is this medicine? PREDNISONE (PRED ni sone) is a corticosteroid. It is commonly used to treat inflammation of the skin, joints, lungs, and other organs. Common conditions treated include asthma, allergies, and arthritis. It is also used for other conditions, such as blood disorders and diseases of the adrenal glands. How should I use this medicine? Take this medicine by mouth with a glass of water. Follow the directions on the prescription label. Take this medicine with food. If you are taking this medicine once a day, take it in the morning. Do not take more medicine than you are told to take. Do not suddenly stop taking your medicine because you may develop a severe reaction. Your doctor will tell you how much medicine to take. If your doctor wants you to stop the medicine, the dose may be slowly lowered over time to avoid any side effects. Talk to your skin care instructor regarding the use of this medicine in children. Special care may be needed. What side effects may I notice from receiving this medicine? Side effects that you should report to your doctor or health acute care nurse as soon as possible: allergic reactions like skin rash, itching or hives, swelling of the face, lips, or tongue changes in emotions or moods changes in vision depressed mood eye pain fever or chills, cough, sore throat, pain or difficulty passing urine increased thirst swelling of ankles, feet Side effects that usually do not require medical attention (report to your doctor or health acute care nurse if they continue or are bothersome): confusion, excitement, restlessness headache nausea, vomiting skin problems, acne, thin and shiny skin trouble sleeping weight gain What may interact with this medicine? Do not take this medicine with any of the following medications: metyrapone mifepristone This medicine may also interact with the following medications: aminoglutethimide amphotericin B aspirin and aspirin-like medicines barbiturates certain medicines for diabetes, like glipizide or glyburide cholestyramine cholinesterase inhibitors cyclosporine digoxin diuretics ephedrine female hormones, like estrogens and control pills isoniazid ketoconazole NSAIDS, medicines for pain and inflammation, like ibuprofen or naproxen phenytoin rifampin toxoids vaccines warfarin What if I miss a dose? If you miss a dose, take it as soon as you can. If it is almost time for your next dose, talk to your doctor or health acute care nurse. You may need to miss a dose or take an extra dose. Do not take double or extra doses without advice. Where should I keep my medicine? Keep out of the reach of children. Store at room temperature between 15 and 30 degrees C (59 and 86 degrees F). Protect from light. Keep container tightly closed. Throw away any unused medicine after the expiration date. What should I tell my health care provider before I take this medicine? They need to know if you have any of these conditions: Glenmoore's syndrome diabetes glaucoma heart disease high blood pressure infection (especially a virus infection such as chickenpox, cold sores, or herpes) kidney disease liver disease mental illness myasthenia gravis osteoporosis seizures stomach or intestine problems thyroid disease an unusual or allergic reaction to lactose, prednisone, other medicines, foods, dyes, or preservatives or trying to get breast-feeding What should I watch for while using this medicine? Visit your doctor or health acute care nurse for regular checks on your progress. If you are taking this medicine over a prolonged period, carry an identification card with your name and address, the type and dose of your medicine, and your doctor's name and address. This medicine may increase your risk of getting an infection. Tell your doctor or health acute care nurse if you are around anyone with measles or chickenpox, or if you develop sores or blisters that do not heal properly. If you are going to have surgery, tell your doctor or health acute care nurse that you have taken this medicine within the last twelve months. Ask your doctor or health acute care nurse about your diet. You may need to lower the amount of salt you eat. This medicine may affect blood sugar levels. If you have diabetes, check with your doctor or health acute care nurse before you change your diet or the dose of your diabetic medicine. You have been given the following additional information: Allergic Reaction, Other (General) Allergic Reaction, Drug Ranitidine Hydrochloride Oral tablet Prednisone Oral tablet Do not work today. (Electronically signed by Thien Fuentes Dr. 12/17/2016 20:46)
--- NOTE | 2016-12-17 20:46 | ED MAR SUMMARY ---
..... Medication Administration Record [facility] [address] [place] [address] Patient: LESLEY GROSSMAN Visit ID: [id number] 26y, F Weight: 57.1 kg Height/Length: 59 in BMI: 25.4 ALLERGIES: No Known Drug Allergy Given 05:12/17/2016 Shayla Law, Medication Administered: PREDNISONE [PO], Dose: 40 mg Tablets PO. Medication Ordered: Prednisone PO 40 mg (NOW). Given 05:12/17/2016 Shayla Law, Medication Administered: BENADRYL [PO] (DIPHENHYDRAMINE HCL), Dose: 50 mg Capsules PO. Medication Ordered: Benadryl PO 50 mg (NOW). Given 05:12/17/2016 Shayla Law, Medication Administered: FAMOTIDINE [PO], Dose: 20 mg Tablets PO. Medication Ordered: Famotidine PO 20 mg (NOW).
--- NOTE | 2016-12-17 20:46 | ED DISCHARGE INSTRUCTIONS ---
Patient: LESLEY GROSSMAN General Instructions [facility] VisitID: [id number] [place] [address] 26y, F Registration Date/Time: 12/17/2016 Generalized allergic reaction with skin rash and hives secondary to PO penicillins. INSTRUCTIONS Do not work today. Your Current Medications: STOP TAKING THE FOLLOWING MEDICATIONS: Augmentin Oral. Bentyl Oral. Reglan Oral. Prescription Medications: Zantac 150 mg: take 1 orally every 12 hours. Dispense sixty (60). No refills. Substitution is permissible. Prednisone 20 mg: take 2 orally every day. Dispense sufficient quantity. No refills. Follow-up: Follow up with your doctor in about two days. Call for an appointment. Screening today revealed the patient's blood pressure to be in the normal range. ADDITIONAL INFORMATION Allergic Reaction,Generalized [Other] You are having an allergic reaction. This may cause an itchy rash, dizziness, fainting, trouble breathing or swallowing, and swelling of the face or other parts of the body. This can be caused by exposure to something in your surroundings that you have become sensitive to. This could be due to medicine or food. This could also be due to something you put on your skin or in your hair or something in the air. Often it is not possible to find out exactly what has caused your reaction. The goal of today's treatment is to relieve symptoms. The rash will usually fade over several days, but can sometimes last up to two weeks. Home Care: 1) If you know what you are allergic to, avoid it because future reactions could be worse than this one. 2) Avoid tight clothing and anything that heats up your skin (hot showers/baths, direct sunlight) since heat will make itching worse. 3) An ice pack will relieve local areas of intense itching and redness. Lanacaine cream or Solarcaine spray (or other product containing "benzocaine", available without a prescription) will reduce the itching. 4) Oral Benadryl (diphenhydramine) is an antihistamine available at drug and grocery stores. Unless a prescription antihistamine was given, Benadryl may be used to reduce itching if large areas of the skin are involved. Use lower doses during the daytime and higher doses at bedtime since the drug may make you sleepy. [NOTE: Do not use Benadryl if you have glaucoma or if you are a man with trouble urinating due to an enlarged prostate.] Claritin (loratidine) is an antihistamine that causes less drowsiness and is a good alternative for daytime use. Follow Up Follow Up with your doctor or this facility in two days if your symptoms do not continue to improve. If you had a severe reaction today, or if you have had several mild-moderate allergic reactions in the past, ask your doctor about allergy testing to find out what you are allergic to. If your reaction included dizziness, fainting or trouble breathing or swallowing, ask your doctor about carrying an Allergy Kit (injectable epinephrine) for home use. Get Prompt Medical Attention if any of the following occur: -- Trouble breathing or swallowing -- New or worse swelling in the face, eyelids, lips, mouth, tongue or throat -- Dizziness, weakness or fainting Drug Reaction: Allergic You are having an allergic reaction to a drug you have taken. This causes an itchy rash and sometimes swelling of various parts of the body. It may also cause trouble swallowing or breathing. The rash may take a few hours or up to two weeks to go away. In the future, remember to tell your doctor about your allergy to this drug so that drugs of this type won't be used again. Home Care: 1) Throw the drug away and do not take it again. The next reaction may be much worse. 2) Avoid tight clothing and anything that heats up your skin (hot showers/baths, direct sunlight) since heat will make itching worse. 3) An ice pack (ice cubes in a plastic bag, wrapped in a towel) will relieve local areas of intense itching and redness. Lanacaine cream or Solarcaine spray (or other product containing "benzocaine") will reduce the itching. 4) Avoid scratching which may worsen the reaction, damage your skin and lead to an infection. 5) Oral Benadryl (diphenhydramine) is an antihistamine available at drug and grocery stores. Unless a prescription antihistamine was given, Benadryl may be used to reduce itching if large areas of the skin are involved. Use lower doses during the daytime and higher doses at bedtime since the drug may make you sleepy. [NOTE: Do not use Benadryl if you have glaucoma or if you are a man with trouble urinating due to an enlarged prostate.] Claritin (loratadine) is an antihistamine that causes less drowsiness and is a good alternative for daytime use. Follow Up with your doctor or this facility in the next two days if your symptoms do not continue to improve. Get Prompt Medical Attention if any of the following occur: -- Wheezing, shortness of breath or difficulty swallowing -- Increased swelling in the face, eyelids, mouth, lips, tongue or throat -- Dizziness, weakness or fainting Ranitidine Hydrochloride Oral tablet What is this medicine? RANITIDINE (ra RAVEN arvizu) is a type of antihistamine that blocks the release of stomach acid. It is used to treat stomach or intestinal ulcers. It can relieve ulcer pain and discomfort, and the heartburn from acid reflux. How should I use this medicine? Take this medicine by mouth with a glass of water. Follow the directions on the prescription label. If you only take this medicine once a day, take it at bedtime. Take your medicine at regular intervals. Do not take your medicine more often than directed. Do not stop taking except on your doctor's advice. Talk to your hot blaster regarding the use of this medicine in children. Special care may be needed. What side effects may I notice from receiving this medicine? Side effects that you should report to your doctor or health manager care as soon as possible: agitation, nervousness, depression, hallucinations allergic reactions like skin rash, itching or hives, swelling of the face, lips, or tongue breast enlargement in both males and females breathing problems redness, blistering, peeling or loosening of the skin, including inside the mouth unusual bleeding or bruising unusually weak or tired vomiting yellowing of the skin or eyes Side effects that usually do not require medical attention (report to your doctor or health manager care if they continue or are bothersome): constipation or diarrhea dizziness headache nausea What may interact with this medicine? atazanavir delavirdine gefitinib glipizide ketoconazole midazolam procainamide propantheline triazolam warfarin What if I miss a dose? If you miss a dose, take it as soon as you can. If it is almost time for your next dose, take only that dose. Do not take double or extra doses. Where should I keep my medicine? Keep out of the reach of children. Store at room temperature between 15 and 30 degrees C (59 and 86 degrees F). Protect from light and moisture. Keep container tightly closed. Throw away any unused medicine after the expiration date. What should I tell my health care provider before I take this medicine? They need to know if you have any of these conditions: kidney disease liver disease porphyria an unusual or allergic reaction to ranitidine, other medicines, foods, dyes, or preservatives or trying to get breast-feeding What should I watch for while using this medicine? Tell your doctor or health manager care if your condition does not start to get better or gets worse. You may need to take this medicine for several days as prescribed before your symptoms get better. Finish the full course of tablets prescribed, even if you feel better. Do not smoke cigarettes or drink alcohol. These increase irritation in your stomach and can lengthen the time it will take for ulcers to heal. Cigarettes and alcohol can also make acid reflux or heartburn worse. If you get black, tarry stools or vomit up what looks like coffee grounds, call your doctor or health manager care at once. You may have a bleeding ulcer. Prednisone Oral tablet What is this medicine? PREDNISONE (PRED ni sone) is a corticosteroid. It is commonly used to treat inflammation of the skin, joints, lungs, and other organs. Common conditions treated include asthma, allergies, and arthritis. It is also used for other conditions, such as blood disorders and diseases of the adrenal glands. How should I use this medicine? Take this medicine by mouth with a glass of water. Follow the directions on the prescription label. Take this medicine with food. If you are taking this medicine once a day, take it in the morning. Do not take more medicine than you are told to take. Do not suddenly stop taking your medicine because you may develop a severe reaction. Your doctor will tell you how much medicine to take. If your doctor wants you to stop the medicine, the dose may be slowly lowered over time to avoid any side effects. Talk to your hot blaster regarding the use of this medicine in children. Special care may be needed. What side effects may I notice from receiving this medicine? Side effects that you should report to your doctor or health manager care as soon as possible: allergic reactions like skin rash, itching or hives, swelling of the face, lips, or tongue changes in emotions or moods changes in vision depressed mood eye pain fever or chills, cough, sore throat, pain or difficulty passing urine increased thirst swelling of ankles, feet Side effects that usually do not require medical attention (report to your doctor or health manager care if they continue or are bothersome): confusion, excitement, restlessness headache nausea, vomiting skin problems, acne, thin and shiny skin trouble sleeping weight gain What may interact with this medicine? Do not take this medicine with any of the following medications: metyrapone mifepristone This medicine may also interact with the following medications: aminoglutethimide amphotericin B aspirin and aspirin-like medicines barbiturates certain medicines for diabetes, like glipizide or glyburide cholestyramine cholinesterase inhibitors cyclosporine digoxin diuretics ephedrine female hormones, like estrogens and control pills isoniazid ketoconazole NSAIDS, medicines for pain and inflammation, like ibuprofen or naproxen phenytoin rifampin toxoids vaccines warfarin What if I miss a dose? If you miss a dose, take it as soon as you can. If it is almost time for your next dose, talk to your doctor or health manager care. You may need to miss a dose or take an extra dose. Do not take double or extra doses without advice. Where should I keep my medicine? Keep out of the reach of children. Store at room temperature between 15 and 30 degrees C (59 and 86 degrees F). Protect from light. Keep container tightly closed. Throw away any unused medicine after the expiration date. What should I tell my health care provider before I take this medicine? They need to know if you have any of these conditions: Bath's syndrome diabetes glaucoma heart disease high blood pressure infection (especially a virus infection such as chickenpox, cold sores, or herpes) kidney disease liver disease mental illness myasthenia gravis osteoporosis seizures stomach or intestine problems thyroid disease an unusual or allergic reaction to lactose, prednisone, other medicines, foods, dyes, or preservatives or trying to get breast-feeding What should I watch for while using this medicine? Visit your doctor or health manager care for regular checks on your progress. If you are taking this medicine over a prolonged period, carry an identification card with your name and address, the type and dose of your medicine, and your doctor's name and address. This medicine may increase your risk of getting an infection. Tell your doctor or health manager care if you are around anyone with measles or chickenpox, or if you develop sores or blisters that do not heal properly. If you are going to have surgery, tell your doctor or health manager care that you have taken this medicine within the last twelve months. Ask your doctor or health manager care about your diet. You may need to lower the amount of salt you eat. This medicine may affect blood sugar levels. If you have diabetes, check with your doctor or health manager care before you change your diet or the dose of your diabetic medicine. You have been given the following additional information: Allergic Reaction, Other (General) Allergic Reaction, Drug Ranitidine Hydrochloride Oral tablet Prednisone Oral tablet Do not work today. (Electronically signed by Thien Fuentes Dr. 12/17/2016 20:46)
--- NOTE | 2016-12-17 20:47 | ED MED RECONCILIATION SUMMARY ---
Patient: LESLEY GROSSMAN Medication Reconciliation Report [facility] VisitID: [id number] [address] [place] [address] 26y, F Registration Date/Time: 12/17/2016 Weight: 57.1 kg Height/Length: 59 in. BMI: 25.4 ALLERGIES: No Known Drug Allergy The patient's Home Medications are listed below: STOP TAKING THE FOLLOWING MEDICATIONS: Augmentin Oral Bentyl Oral Reglan Oral The source(s) of the original Home Medication information: patient The following Medications were given to the patient in the Emergency Department: Prednisone [PO] PO 40 mg, administered: 12/17/2016 5:12:00 AM Benadryl [PO] PO 50 mg, administered: 12/17/2016 5:12:00 AM Famotidine [PO] PO 20 mg, administered: 12/17/2016 5:12:00 AM The following Medications were prescribed to the patient: Zantac 150 mg: take 1 orally every 12 hours. Dispense sixty (60). No refills. Substitution is permissible. -- Thien Fuentes Dr. Prednisone 20 mg: take 2 orally every day. Dispense sufficient quantity. No refills. -- Thien Fuentes Dr.
--- NOTE | 2016-12-17 20:47 | ED MED RECONCILIATION SUMMARY ---
Patient: LESLEY GROSSMAN Medication Reconciliation Report [facility] VisitID: [id number] [address] [place] [address] 26y, F Registration Date/Time: 12/17/2016 Weight: 57.1 kg Height/Length: 59 in. BMI: 25.4 ALLERGIES: No Known Drug Allergy The patient's Home Medications are listed below: STOP TAKING THE FOLLOWING MEDICATIONS: Augmentin Oral Bentyl Oral Reglan Oral The source(s) of the original Home Medication information: patient The following Medications were given to the patient in the Emergency Department: Prednisone [PO] PO 40 mg, administered: 12/17/2016 5:12:00 AM Benadryl [PO] PO 50 mg, administered: 12/17/2016 5:12:00 AM Famotidine [PO] PO 20 mg, administered: 12/17/2016 5:12:00 AM The following Medications were prescribed to the patient: Zantac 150 mg: take 1 orally every 12 hours. Dispense sixty (60). No refills. Substitution is permissible. -- Thien Fuentes Dr. Prednisone 20 mg: take 2 orally every day. Dispense sufficient quantity. No refills. -- Thien Fuentes Dr.
== END 2016-12-17 06:25 | disposition home or self-care (01) ==
LOC: ED SRH 04:46
DX: L50.0 Allergic urticaria (principal); T36.0X5A Adverse effect of penicillins, initial encounter